=== PATIENT | female | born 1965 | race Caucasian/White ===

== ENCOUNTER 2022-07-05 19:35 | Observation (INO) ==
[2022-07-05] MEDS ORDERED: Ondansetron 4 mg VIAL 2 MG/ML 2 ml VIAL IV PRN (21:04)
[2022-07-05] MEDS ORDERED: HYDROmorphone 1 MG/1 ML SYRINGE IV SLOW PU PRN (21:07)
[2022-07-05 21:51] LABS: ABS Lymphocytes 0.3 10^3/ul (1.0-4.8); Eosinophil % 0.1 %; Hematocrit 42 % (35-47); Hemoglobin 13.8 g/dL (12.0-16.0); Lymphocyte % 6.9 %; Mean Corpuscular HGB Conc 33 g/dL (31-36); Mean Corpuscular Hemoglobin 30 pg (27-31); Mean Corpuscular Volume 89 fL (80-97); Mean Platelet Volume 7.6 fL (7.4-10.4); Platelet Count 167 10^3/uL (150-450); Red Blood Count 4.69 10^6 /uL (3.70-4.87); Red Cell Distribution Width 14 % (10-15); White Blood Count 4.3 10^3/uL (3.5-10.8)
[2022-07-05 22:18] LABS: Albumin 4.3 g/dL (3.2-5.2); Albumin/Globulin Ratio 2.7 (1-3); Globulin 1.6 g/dL (2-4); Potassium 4.1 mmol/L (3.5-5.0); Total Bilirubin 0.6 mg/dL (0.2-1.0); Total Protein 5.9 g/dL (6.4-8.9); eGFR CKD-EPI 92.8 (>60)
[2022-07-05] MEDS: Acetaminophen IV 1 GM/100ML 1,000 MG/100 ML BAG IV PRN (22:18)
[2022-07-05] MEDS ORDERED: Enoxaparin 40 MG/0.4 ML SYR SUBCUT SCH (23:00)
[2022-07-06] MEDS ORDERED: HYDROmorphone 0.5 MG/0.5 ML SYRINGE IV SLOW PU PRN (07:26)
[2022-07-06] MEDS: Acetaminophen IV 1 GM/100ML 1,000 MG/100 ML BAG IV PRN (09:17)
[2022-07-06 14:48] VITALS: BP 126/72
== END 2022-07-06 14:30 | disposition home or self-care (01) ==
LOC: SSU 20:39 → SUATTDRO 20:39 → INTOOBSV 20:39
PROVIDERS: ADMIT Internal Medicine; ATTEND Hospitalist